=== PATIENT | female | born 2000 | race Caucasian/White ===

== ENCOUNTER 2019-04-22 14:03 | Emergency (ER) | payer OTHER ==
--- NOTE | 2019-04-22 14:10 | PDOC ---
History of Present Illness - General Chief Complaint: Injury Stated Complaint: RT 5TH FINGER PAIN Time Seen by Provider: 04/22/19 14:06 History Source: Patient Exam Limitations: No Limitations - History of Present Illness Initial Comments: 04/22/19 14:06 HPI 18 YOF with h/o migraines presenting with right pinky finger pain and swelling x 1 day after jamming in dresser while unpacking in her dorm yesterday. took motrin at 5am, initially with some relief. no weakness/paresthesias. PMH: migraine PSH: none Social: attends college. Meds: as documented in EMR. Family history: noncontributory. Review of Systems Constitutional: no fevers or chills. MUSCULOSKELETAL: +joint pain and swelling. No muscle pain/arthralgias. Back: no back pain SKIN: no redness or skin changes, no discharge, no rash. No wounds. +bruising/ ecchymosis. Hematologic: no easy bruising/bleeding. NEUROLOGIC: No weakness, numbness or tingling. Allergic/Immunologic: no allergies All other systems reviewed and negative, or as documented in HPI. physical exam General: NAD, well appearing Vascular: 2+ DP pulses symmetric and equal. MSK: soft compartments, Cap refill <2 sec. Proximal and distal strength 5/5, steward/[employer] dining car strength 5/5 - equal and symmetric. FROM. Sensation grossly intact to light touch. sensation grossly intact in median/radial/ulnar distribution. distal steward/[employer] dining car strength 5/5. 2+ radialis pulses bilaterally and symmetric. FDS And FDP intact in affected finger. right finger 5/5 FDP and FDS strength against resistance., PIP and MCP with faint ecchymosis and swelling, TTP at respective joints. Neuro: alert, no focal neurologic deficits Skin: color normal color, warm and well perfused. Cap refill <2 sec. 04/22/19 14:08 04/22/19 14:15 Past History - Past Medical History Allergies/Adverse Reactions: Allergies Allergy/AdvReac Type Severity Reaction Status Date / Time No Known Allergies Allergy Verified 04/22/19 14:05 Home Medications: Ambulatory Orders Unobtainable 04/22/19 ED Treatment Course - RADIOLOGY Radiology Studies Ordered: Category Date Time Status FINGER(S) RIGHT [RAD] Stat Radiology 04/22/19 14:05 Ordered Medical Decision Making - Medical Decision Making 04/22/19 14:08 Vital Signs Temp Pulse Resp BP Pulse Ox 98.4 F 96 H 20 129/84 97 04/22/19 14:04 04/22/19 14:04 04/22/19 14:04 04/22/19 14:04 04/22/19 14:04 ddx. finger sprain, dislocation, fx xray of right pinky finger neg for fx/dislocation, normal. analgesia here finger sprain treated with finger splint for immobilization expectant management x 3-5 days, supportive care, RICE therapy, otc analgesia, pmd followup as needed avoid heavy lifting or movements that could exacerbate pain. 04/22/19 14:16 04/22/19 14:41 Discharge - Discharge Information Problems reviewed: Yes Clinical Impression/Diagnosis: Sprain of little finger Qualifiers: Encounter type: initial encounter Sprain of finger site: interphalangeal joint Laterality: right Qualified Code(s): S63.636A - Sprain of interphalangeal joint of right little finger, initial encounter Condition: Improved Disposition: HOME - Admission No - Follow up/Referral - Patient Discharge Instructions Patient Printed Discharge Instructions: DI for Finger Sprain Additional Instructions: You most likely have musculoskeletal sprain of your finger wear the finger splint for immobilization so it can heal properly. Avoid heavy lifting or strenuous activity to minimize further injury This should heal over the next 3-5 days. RICE rest ice elevate the affected area Rest, Ice (20 minutes at a time, 3 times a day), Compression (CRISTI wrap or splint ), Elevation (above the heart). Apply ice to the area for 10 minutes every 2 hours for the first 2 days after the injury to reduce swelling. continue with range of motion exercises, as this will facilitate the healing process; avoid being bed bound and immobile. If you have any worsening of symptoms, including severe pain/swelling/redness/ numbness/changes in sensation/weakness/paralysis or any other concerns please return to the Emergency Department immediately. You were given a copy of the results from any tests performed today in the Emergency Department which have results available. Show these to your doctor(s). Some of the tests we sent may not have results yet so please call or have your doctor call the Emergency Department to follow up on all results. -May take ibuprofen 400-600mg and/or tylenol 650 to 975 mg every 6 hours as needed for mild to moderate pain, available over the counter. This does not require narcotics, as it will precipitate injuries and falls. Please follow up with your primary doctor(s) within the next 1 week, but seek medical care sooner if your symptoms persist or worsen. Please call as soon as possible for an appointment. If you cannot follow up with your doctor please return to the Emergency Department for any urgent issues. Follow up with your primary care physician in 1 week if symptoms persist, or with orthopedics specialists if needed, referrals have been provided. - Post Discharge Activity
[2019-04-22 14:15] VITALS: BP 129/84; PULSE 96; TEMP 98.4; BMI 28.3
[2019-04-22] MEDS ORDERED: IBUPROFEN 600 MG TABLET (FP) PO ONE ×2 (14:15→14:34)
== END 2019-04-22 15:03 | disposition home or self-care (01) ==
LOC: FER 14:03
PROC: 2W3KX1Z Immobilization of Left Finger using Splint (ICD-10-PCS; principal; 2019-04-22)
DX: S63.636A Sprain of interphalangeal joint of right little finger, initial encounter (principal); W20.8XXA Other cause of strike by thrown, projected or falling object, initial encounter; Y93.89 Activity, other specified; Y92.89 Other specified places as the place of occurrence of the external cause
CPT/HCPCS: 73140-TC-RT-FY; 99281-25